=== PATIENT | female | born 1950 | race Caucasian/White ===

== ENCOUNTER 2018-03-11 08:50 | Emergency (ER) | payer MEDICARE ==
--- NOTE | 2018-03-11 09:18 | ER Document Report ---
HPI - HPI Pain Level: 4 Notes: Patient is a 67-year-old female who presents with chief complaint of right ankle and heel pain. Patient reports she was standing up on her bed when she was changing a light bulb and fell straight down onto her right heel landing on ceramic tile. She states this occurred last night. Patient is able to bear weight however she states it is very painful. Past Medical History - General Information source: Patient - Social History Smoking Status: Current Every Day Smoker Frequency of alcohol use: None Drug Abuse: None Family History: Reviewed & Not Pertinent - Medical History Medical History: Negative Surgical Hx: Negative - Immunizations Immunizations up to date: Yes Vertical Provider Document - CONSTITUTIONAL Notes: PHYSICAL EXAMINATION: GENERAL: Well-appearing, well-nourished and in no acute distress. HEAD: Atraumatic, normocephalic. EYES: Pupils equal round extraocular movements intact, conjunctiva are normal. ENT: Nares patent NECK: Normal range of motion LUNGS: No respiratory distress Musculoskeletal: Normal range of motion, mild swelling noted to medial aspect of right ankle, small amount of ecchymosis noted, cap refill less than 3 seconds , all pulses present and palpable, normal motor and sensation distal to area of injury. NEUROLOGICAL: Normal speech. PSYCH: Normal mood, normal affect. SKIN: Warm, Dry, normal turgor, no rashes or lesions noted. - INFECTION CONTROL TRAVEL OUTSIDE OF THE [place] IN LAST 30 DAYS: No Course - Re-evaluation Re-evalutation: 03/11/18 10:08 X-ray reveals nondisplaced calcaneal fracture. Patient will be placed in a posterior ankle splint. Patient will be referred to orthopedics. Patient verbalizes understanding of instructions and does not have any questions. - Vital Signs Vital signs: Temp Pulse Resp BP Pulse Ox 97 18 121/65 98 03/11/18 09:08 03/11/18 09:08 03/11/18 09:08 03/11/18 09:08 Procedures - Immobilization Right ankle Pre-Proc Neuro Vasc Exam: Normal Immobilizer type: Crutches, Posterior ankle Performed by: PCT Post-Proc Neuro Vasc Exam: Normal Alignment checked and good: Yes Discharge - Discharge Clinical Impression: Calcaneal fracture Qualifiers: Encounter type: initial encounter Calcaneus location: unspecified portion of calcaneus Fracture type: closed Fracture alignment: nondisplaced Laterality: right Qualified Code(s): S92.001A - Unspecified fracture of right calcaneus, initial encounter for closed fracture Condition: Stable Disposition: HOME, SELF-CARE Additional Instructions: Fracture Calcaneus You have a fracture of the calcaneus (heel bone). This type of fracture tends to swell a great deal. It is usually quite painful. Many fractures of the calcaneus need an operation to heal properly. Elevate and ice pack the heel area. Do not walk on the injured foot (use crutches). If a splint was put on, keep the splint in place. Be sure to follow up for further care as instructed. If the toes become swollen, discolored, or numb, loosen the wrapping. If the symptoms don't go away, return at once. Come back if there is increasingly severe pain. Ice & Elevation Apply ice packs frequently against the painful area. Many different schedules are recommended, such as "20 minutes on, 20 minutes off" or "one hour ice, two hours rest." If you need to work, you may need to go longer between ice treatments. You should plan to have the area ice packed AT LEAST one- fourth of the time. The ice should be applied over the wrap, tape, or splint, or over a layer of cloth -- not directly against the skin. Some ice bags have a built-in cloth and can be put directly on the skin. Your injured part should be elevated as much as possible over the next 48 hours. Try to keep the injury above the level of the heart. Avoid use of the injured area. Elevation and rest will decrease the swelling. Ibuprofen Ibuprofen is an excellent, safe drug for pain control. In addition, it has potent antiinflammatory effects which are beneficial, especially in the treatment of injuries, arthritis, or tendonitis. It's best to take ibuprofen with food. Persons with ulcer disease or allergy to aspirin should notify their physician of this before taking ibuprofen. Take the medication exactly as prescribed. Don't take additional doses unless instructed to do so by your doctor. If you develop wheezing, shortness of breath, hives, faintness, stomach pain, vomiting, or dark black stools, return for re-evaluation at once. Oral Narcotic Medication You have been given a prescription for pain control. This medication is a narcotic. It's best taken with food, as nausea can result if taken on an empty stomach. Don't operate machinery or drive within six hours of taking this medication. Do not combine this medicine with alcohol, or with any medication which can cause sedation (such as cold tablets or sleeping pills) unless you get permission from the physician. Narcotics tend to cause constipation. If possible, drink plenty of fluids and eat a diet high in fiber and fruits. Please follow-up with orthopedics as we discussed, call them Monday to schedule an appointment. Let them know you were seen in the emergency department and diagnosed with a fracture of the calcaneus. Use the crutches and keep the splint in place until seen by orthopedics. Take ibuprofen 600 mg every 6 hours [id number] for the next several days this will help decrease the inflammation. Use the narcotic pain medication I have provided for severe pain only. Please use caution and pay attention to the fact that the narcotic pain medication does contain acetaminophen as well. Prescriptions: Hydrocodone/Acetaminophen [Hydrocodon-Acetaminophen 5-325] 1 each PO Q4H PRN # 10 tablet PRN Reason: For Pain Forms: Return to Work Referrals: NEGAR BLACKMON MD [ACTIVE STAFF] - Follow up as needed
--- NOTE | 2018-03-11 09:49 | RADIOLOGY REPORT (SQ) ---
EXAM DESCRIPTION: ANKLE RIGHT COMPLETE COMPLETED DATE/TIME: 03/11/2018 9:32 am REASON FOR STUDY: Right ankle pain after fall COMPARISON: None. NUMBER OF VIEWS: Three views. TECHNIQUE: AP, lateral, and oblique radiographic images acquired of the right ankle. LIMITATIONS: None. FINDINGS: MINERALIZATION: Normal. BONES: Nondisplaced fracture of the plantar surface of the posterior calcaneus. No additional fractu re. Alignment is normal. Visualized joint spaces are normal. No erosions. JOINTS: No effusions. SOFT TISSUES: Soft tissue swelling of the hindfoot. No radiopaque foreign body. No subcutaneous gas . OTHER: No other significant finding. IMPRESSION: Nondisplaced calcaneal fracture. TECHNICAL DOCUMENTATION: JOB ID: [id number] [employer]- All Rights Reserved Reading location - IP/workstation name: [email or web address]
[2018-03-11] MEDS ORDERED: IBUPROFEN 600 MG TABLET PO ONE (10:00)
[2018-03-11] MEDS ORDERED: HYDROCODONE/ACETAMINOPHEN 5-325 MG TABLET PO ONE (10:01)
[2018-03-11 10:35] VITALS: BP 114/64
== END 2018-03-11 10:36 | disposition home or self-care (01) ==
LOC: ER 08:50
DX: S92.001A Unspecified fracture of right calcaneus, initial encounter for closed fracture (principal); W06.XXXA Fall from bed, initial encounter; Y93.E9 Activity, other interior property and clothing maintenance; F17.200 Nicotine dependence, unspecified, uncomplicated
CPT/HCPCS: 99283; 73610; 29515; A9270 ×2